=== PATIENT | female | born 1975 | race Caucasian/White ===

== ENCOUNTER 2017-01-20 21:47 | Emergency (ER) | payer OTHER ==
[~2017-01-20 21:47] MED LIST: ACETAMINOPHEN325 MG PO; BUSPAR5 MG PO; COLACE100 MG PO; LAMICTAL100 MG PO; LEVOTHYROXINE175 MCG PO; NEURONTIN300 MG PO; PERCOCET 5/3251 TAB PO; VITAMIN D2000 UNI1 PO
== END 2017-01-20 22:37 | disposition home or self-care (01) ==
LOC: FER 21:47
DX: S50.862A Insect bite (nonvenomous) of left forearm, initial encounter (principal); S50.861A Insect bite (nonvenomous) of right forearm, initial encounter; S90.561A Insect bite (nonvenomous), right ankle, initial encounter; W57.XXXA Bitten or stung by nonvenomous insect and other nonvenomous arthropods, initial encounter; F98.8 Other specified behavioral and emotional disorders with onset usually occurring in childhood and adolescence; Z90.49 Acquired absence of other specified parts of digestive tract; F17.210 Nicotine dependence, cigarettes, uncomplicated
CPT/HCPCS: 99282

== ENCOUNTER 2021-06-06 12:12 | Emergency (ER) | payer OTHER ==
[2021-06-06 13:48] LABS: BASOPHIL 0.7 % (0-2); EOSINOPHIL 3.8 % (0-5); HCT 43.4 % (37.0-47.0); HGB 14.6 g/dl (12.5-16.0); LYMPHOCYTE 32.8 % (15-48); MCH 32.1 pg (25.0-31.0); MCHC 33.6 g/dL (32.0-36.0); MCV 95.4 fL (78.0-100.0); MONOCYTE 4.6 % (0-12); MPV 9.1 fL (6.0-9.5); NEUTROPHIL 57.8 % (41-80); NRBC 0; PLT 267 K/uL (150-400); RBC 4.55 M/uL (4.20-5.40); RDW 12.4 % (11.5-14.0); WBC 7.2 K/uL (4.0-10.5)
[2021-06-06 14:02] LABS: BILIRUBIN NEGATIVE (NEGATIVE); BLOOD 2+ Ery/uL (NEGATIVE); CLARITY CLEAR (CLEAR); COLOR YELLOW (YELLOW); GLUCOSE (U) NORMAL (NORMAL); LEUKOCYTES TRACE Leu/uL (NEGATIVE); NITRITE NEGATIVE (NEGATIVE); PROTEIN TRACE (LOW) mg/dL (NEGATIVE); SPECIFIC GRAVITY >=1.030 (1.001-1.030); UROBILINOGEN 0.2 mg/dL (0.2-1.0)
[2021-06-06 14:14] LABS: BUN/CREAT RATIO (CALC) 17.3 RATIO; CREATININE 0.81 mg/dL (0.51-0.95); POTASSIUM 3.8 mmol/L (3.5-5.1)
[2021-06-06 14:15] LABS: BACTERIA TRACE; MUCOUS TRACE
[2021-06-06 14:16] LABS: CALCIUM OXALATE CRYSTALS TRACE
[2021-06-06 14:33] LABS: CORONAVIRUS 2019 SARS-COV-2 NEGATIVE (NEGATIVE); INFLUENZA A NAA NEGATIVE (NEGATIVE)
[2021-06-06] MEDS ORDERED: BACTRIM DS TAB1 EACH PO (17:03)
== END 2021-06-06 17:30 | disposition home or self-care (01) ==
LOC: FER 12:12
PROVIDERS: Nurse Practitioner Family
DX: B34.9 Viral infection, unspecified (principal); N39.0 Urinary tract infection, site not specified; I10 Essential (primary) hypertension; Z20.822 Contact with and (suspected) exposure to COVID-19
CPT/HCPCS: 36415; 71045; 80048; 81001; 85025; 87088; 87880; J1885; J2405; J7030; U0002